=== PATIENT | female | born 1980 | race Caucasian/White ===

== ENCOUNTER 2017-04-02 08:40 | Emergency (ER) | payer OTHER ==
--- NOTE | ~2017-04-02 | US85 ---
[facility] RADIOLOGY TEXT RESULTS PATIENT: ENDY LIZAMA LOCATION: SED : 76 UNIT #: [id number] AGE: [address]: Trevor Quinones MD SEX: F ORDER DR: [id number] [place] [id number] E MR#: [id number] Acc #: [id number] NAME: ENDY LIZAMA : 1980 SEX: F STUDY DATE/TIME: 04/02/2017 9:40 UNIT: SED ROOM: STUDY DESCRIPTION: [facility] Attending Physician: Trevor Quinones M.D. Ordering Physician: Trevor Quinones M.D. Primary Care Physician: Mele Farooq M.D. MEDICAL IMAGING REPORT This report is preliminary unless electronic signature is present. EXAM Right lower extremity venous ultrasound. HISTORY Right calf pain for four days. TECHNIQUE Venous ultrasound examination of the right lower extremity was performed using grayscale, spectral Doppler and color flow Doppler imaging. FINDINGS The examination is negative. There is no evidence of right lower extremity deep venous thrombus from the groin to the lower calf. Visualized greater saphenous vein is also patent. IMPRESSION Negative examination. No evidence of right lower extremity deep venous thrombosis. Dictated by... Trveor Gilbert M.D. THIS IS AN ELECTRONICALLY VERIFIED REPORT Trevor Gilbert M.D. at 04/02/2017 3:17 PM FEL/gz TD: 04/02/2017 13:51 JOB #: [id number] MEDICAL IMAGING REPORT [facility] RADIOLOGY TEXT RESULTS PATIENT: ENDY LIZAMA LOCATION: SED : 76 UNIT #: [id number] AGE: [address]: Trevor Quinones MD SEX: F ORDER DR: Page 1 of 1
[2017-04-02] MEDS ORDERED: NO MEDICATIONS (08:46)
== END 2017-04-02 11:05 | disposition home or self-care (01) ==
LOC: SED 08:40
DX: S86.811A Strain of other muscle(s) and tendon(s) at lower leg level, right leg, initial encounter (principal); Z88.2 Allergy status to sulfonamides; Z91.041 Radiographic dye allergy status; X58.XXXA Exposure to other specified factors, initial encounter
CPT/HCPCS: 29530; 93971; 99284